=== PATIENT | female | born 2000 | race Two or more races ===

== ENCOUNTER 2022-09-10 08:53 | Emergency (ER) | payer OTHER ==
[2022-09-10 08:59] VITALS: BP 101/66; PULSE 95; RESP 20; TEMP 98; BMI 20.7
[2022-09-10] MEDS ORDERED: ACETAMINOPHEN 325 MG TABLET (FP) PO ONE (09:42)
[2022-09-10] MEDS ORDERED: LORATADINE 10 MG TABLET PO ONE (09:43)
[2022-09-10] MEDS ORDERED: DEXAMETHASONE LIQUID 0.5 MG/5 ML PO ONE (10:01)
[2022-09-10] MEDS ORDERED: KETOROLAC TROMETHAMINE 30 MG/1 ML VIAL IM ONE (10:01)
[2022-09-10] MEDS ORDERED: LORATADINE 10 MG TABLET ONE (10:05)
[2022-09-10] MEDS ORDERED: ACETAMINOPHEN 500 MG TABLET (FP) ONE ×2 (10:05→10:13)
[2022-09-10] MEDS ORDERED: DEXAMETHASONE SOD PHOSPHATE 10 MG/1 ML VIAL ONE (10:13)
[2022-09-10] MEDS ORDERED: KETOROLAC TROMETHAMINE 30 MG/1 ML VIAL ONE (10:13)
== END 2022-09-10 10:26 | disposition home or self-care (01) ==
LOC: JERFT 08:53
PROC: 3E023GC Introduction of Other Therapeutic Substance into Muscle, Percutaneous Approach (ICD-10-PCS; principal; 2022-09-10)
PROC: 3E0233Z Introduction of Anti-inflammatory into Muscle, Percutaneous Approach (ICD-10-PCS; 2022-09-10)
DX: R07.0 Pain in throat (principal); R53.81 Other malaise; R50.9 Fever, unspecified; M54.2 Cervicalgia; J02.0 Streptococcal pharyngitis; Z20.822 Contact with and (suspected) exposure to COVID-19
CPT/HCPCS: 0241U-QW; 87651; 99284-25